=== PATIENT | male | born 1965 | race Two or more races ===

== ENCOUNTER 2020-12-18 13:46 | Outpatient (CLI) | payer OTHER | END 2020-12-18 13:47 | disposition home or self-care (01) | LOC: NUCLEAR 13:46 | PROVIDERS: ATTEND Orthopaedic Surgery Orthopaedic Surgery of the Spine | DX: M48.07 Spinal stenosis, lumbosacral region (principal); M81.0 Age-related osteoporosis without current pathological fracture ==